=== PATIENT | male | born 1955 | race Caucasian/White ===

== ENCOUNTER 2024-06-26 14:55 | Inpatient (IN) | payer MEDICARE ==
--- NOTE | 2024-06-26 16:05 | ED ---
General Adult HPI - General Chief complaint: Arrhythmia/Palpitations Stated complaint: Transfer-Afib Time Seen by Provider: 06/26/24 15:50 Source: patient, RN/MD, RN notes reviewed, old records reviewed Mode of arrival: ambulatory Limitations: no limitations - History of Present Illness Initial comments: Patient is a 68-year-old male present to the emergency department with concern for atrial flutter. Patient was transferred from [place]. Patient went for routine evaluation for his doctor and then was found to have elevated heart rate. Patient denies any symptoms. No chest pain or palpitations. No dyspnea or fatigue. No history of similar symptoms previously. Patient had evaluation done there and was referred here. Patient drove on his own. - Related Data Home Medications Medication Instructions Recorded Confirmed Empagliflozin [Jardiance] 10 mg PO DAILY 06/26/24 06/26/24 Saw/Vit E/Sod Marissa/Lyc/Beta/Pyg 1 tab PO DAILY 06/26/24 06/26/24 [Prostate Health Caplet] Sildenafil Citrate [Viagra] 25 mg PO DAILY PRN 06/26/24 06/26/24 Allergies Allergy/AdvReac Type Severity Reaction Status Date / Time No Known Allergies Allergy Verified 06/26/24 16:18 Review of Systems ROS Statement: Those systems with pertinent positive or pertinent negative responses have been documented in the HPI. ROS Other: All systems not noted in ROS Statement are negative. Constitutional: Denies: fever Eyes: Denies: eye pain ENT: Denies: ear pain Respiratory: Denies: cough, dyspnea Cardiovascular: Denies: chest pain, palpitations Musculoskeletal: Denies: back pain Past Medical History Past Medical History: Diabetes Mellitus Past Surgical History: No Surgical Hx Reported Past Psychological History: No Psychological Hx Reported Smoking Status: Never smoker Past Alcohol Use History: None Reported Past Drug Use History: None Reported General Exam Limitations: no limitations General appearance: alert, in no apparent distress Head exam: Present: normocephalic Eye exam: Present: normal appearance Neck exam: Present: normal inspection Respiratory exam: Present: normal lung sounds bilaterally Cardiovascular Exam: Present: tachycardia GI/Abdominal exam: Present: soft. Absent: tenderness Extremities exam: Present: normal inspection. Absent: pedal edema, calf tenderness Neurological exam: Present: alert Psychiatric exam: Present: normal affect, normal mood Skin exam: Present: normal color Course Vital Signs 1006/26/24 06/26/24 15:17 15:20 16:20 Temperature 98.3 F Pulse Rate 139 H 141 H 140 H Respiratory 18 18 Rate Blood Pressure 119/83 98/67 109/85 O2 Sat by Pulse 94 L 97 96 Oximetry EKG Findings - EKG Results: EKG: interpreted by LALITAD (Atrial flutter with a rate of 140. Nonspecific intraventricular duction delay. Inferior T wave inversion.), normal axis Medical Decision Making - Medical Decision Making Was pt. sent in by a medical professional or institution (, PA, HOOK AND EYE ATTACHER, urgent care, hospital, or prison...) When possible be specific @ -Patient sent from [place] Did you speak to anyone other than the patient for history (EMS, parent, family, police, friend...)? What history was obtained from this source @ - is present and provides additional history regarding his diabetes Did you review nursing and triage notes (agree or disagree)? Why? @ -I reviewed and agree with nursing and triage notes Were old charts reviewed (outside hosp., previous admission, EMS record, old EKG, old radiological studies, urgent care reports/EKG's, prison records)? Report findings @ -Chart reviewed from [facility] Differential Diagnosis (chest pain, altered mental status, abdominal pain women, abdominal pain men, vaginal bleeding, weakness, fever, dyspnea, syncope, headache, dizziness, GI bleed, back pain, seizure, CVA, palpatations, mental health, musculoskeletal)? @ -Differential Palpitations Ventricular arrhythmias, atrial arrhythmias, myocardial infarction, anemia, thyrotoxicosis, electrolyte imbalance, hypokalemia, pulmonary embolism, pulmonary disease, drugs, alcohol, anxiety, stress.... This is not meant to be an all-inclusive list. EKG interpreted by me (3pts min.). @ -As above X-rays interpreted by me (1pt min.). @ -None done CT interpreted by me (1pt min.). @ -None done U/S interpreted by me (1pt. min.). @ -None done What testing was considered but not performed or refused? (CT, X-rays, U/S, labs )? Why? @ -None What meds were considered but not given or refused? Why? @ -None Did you discuss the management of the patient with other professionals (professionals i.e. , PA, HOOK AND EYE ATTACHER, lab, RT, psych nurse, long term care social worker, hook tender, teacher, occupational medicine officer, mental health case manager)? Give summary @ -[facility] practitioner Abigail Salter who will admit covering Dr. Feng Was smoking cessation discussed for >3mins.? @ -No Was critical care preformed (if so, how long)? @ -31 minutes critical care time Were there social determinants of health that impacted care today? How? (Homelessness, low income, unemployed, alcoholism, drug addiction, transportation, low edu. Level, literacy, decrease access to med. care, half-way, rehab)? @ -No Was there de-escalation of care discussed even if they declined (Discuss DNR or withdrawal of care, Hospice)? DNR status @ -No What co-morbidities impacted this encounter? (DM, HTN, Smoking, COPD, CAD, Cancer, CVA, ARF, Chemo, Hep., AIDS, mental health diagnosis, sleep apnea, m orbid obesity)? @ -History of diabetes Was patient admitted / discharged? Hospital course, mention meds given and route, prescriptions, significant lab abnormalities, going to OR and other pertinent info. @ -Patient presents with new onset atrial flutter. Patient will be admitted with Cardizem and heparin and cardiology consult. Admission orders written. Undiagnosed new problem with uncertain prognosis? @ -No Drug Therapy requiring intensive monitoring for toxicity (Heparin, Nitro, Insulin, Cardizem)? @ -Heparin and Cardizem Were any procedures done? @ -No Diagnosis/symptom? @ -A-flutter with RVR Acute, or Chronic, or Acute on Chronic? @ -Acute Uncomplicated (without systemic symptoms) or Complicated (systemic symptoms)? @ -Default Side effects of treatment? @ -No Exacerbation, Progression, or Severe Exacerbation? @ -No Poses a threat to life or bodily function? How? (Chest pain, [place], [place], pneumonia, PE, COPD, DKA, ARF, appy, cholecystitis, CVA, Diverticulitis, Homicidal, Anton icidal, threat to staff... and all critical care pts) @ -Threat to cardiac function Critical Care Time Critical Care Time: Yes Disposition Clinical Impression: Atrial flutter, Tachycardia Disposition: ADMITTED IP TO THIS HOSP Is patient prescribed a controlled substance at d/c from ED?: No Time of Disposition: 17:19
[2024-06-26] MEDS ORDERED: NALOXONE 0.4 MG/ML 1 ML VIAL IV PRN (16:07)
[2024-06-26] MEDS: DILTIAZEM 125 MG in SODIUM CHLORIDE 0.9% 100 ML IV SCH (16:49)
[2024-06-26] MEDS: HEPARIN SODIUM 1,000 UN/ML (10ML VL) IV ONE (16:51)
[2024-06-26] MEDS: HEPARIN SOD,PORK IN 0.45% NACL 25,000 UNIT in 0.45% NACL 1 250ML.BAG IV SCH (16:53)
[2024-06-26] MEDS: SODIUM CHLORIDE 0.9% 1,000 ML IV SCH (19:54)
[2024-06-26] MEDS: FAMOTIDINE 20 MG TAB PO SCH (20:17)
[2024-06-26 20:18] LABS: Glucose,Whole Blood 219 mg/dL (70-110)
[2024-06-26] MEDS: HEPARIN SODIUM 1,000 UN/ML (10ML VL) IV PRN (22:23)
[2024-06-27 05:48] LABS: Glucose,Whole Blood 245 mg/dL (70-110)
[2024-06-27 06:59] LABS: Basophils % (A) 1 %; Eosinophils # (A) 0.2 k/uL (0-0.7); Eosinophils % (A) 3 %; HCT 44.7 % (39.0-53.0); HGB 14.4 gm/dL (13.0-17.5); Lymphocytes # (A) 1.6 k/uL (1.0-4.8); Lymphocytes % (A) 22 %; MCH 29.2 pg (25.0-35.0); MCHC 32.3 g/dL (31.0-37.0); MCV 90.5 fL (80.0-100.0); Mean Platelet Volume 7.6; Monocytes # (A) 0.5 k/uL (0-1.0); Monocytes % (A) 7 %; Neutrophils # (A) 4.7 k/uL (1.3-7.7); Neutrophils % (A) 65 %; Platelet Count 311 k/uL (150-450); RBC 4.93 m/uL (4.30-5.90); RDW 13.2 % (11.5-15.5); WBC 7.1 k/uL (3.8-10.6)
[2024-06-27 07:06] LABS: INR 1.1 (<1.2); Prothrombin Time 11.8 sec (10.0-12.5)
[2024-06-27] MEDS: DAPAGLIFLOZIN PROPANEDIOL 5 MG TABLET PO SCH (08:38)
[2024-06-27] MEDS ORDERED: [UNRECOGNIZED DRUG - OTHER] PO SCH (09:00)
[2024-06-27] MEDS ORDERED: PYG PO SCH (09:00)
[2024-06-27] MEDS ORDERED: LYC PO SCH (09:00)
[2024-06-27] MEDS ORDERED: VIT E PO SCH (09:00)
[2024-06-27] MEDS ORDERED: SAW PO SCH (09:00)
[2024-06-27] MEDS ORDERED: SOD SEL PO SCH (09:00)
[2024-06-27] MEDS ORDERED: BETA PO SCH (09:00)
--- NOTE | 2024-06-27 10:18 | P.HPIM ---
History of Present Illness History of present illness; 68-year-old male with a past medical history of diabetes presents from [facility] after found to be in atrial flutter. Reports he was at his PCP yesterday where he was noted to have a high heart rate and was sent to [facility] for further evaluation. At [facility] he received an EKG which showed atrial flutter with RVR which prompted them to transfer him to [facility]. Patient denies headache, chest pain, shortness of breath, palpitations, cough, dyspnea, orthopnea, abdominal pain, nausea and vomiting, constipation, and diarrhea. Patient also denies lower extremity swelling. Reports he has not had any symptoms since initially finding out he was in atrial flutter. Initial lab work from the ER was significant for WBC 7.1, hemoglobin 14.4, MCV 90.5, PT 11.8, INR 1.1, APTT 45.4, POC glucose 245, troponins less than 0.012. EKG done in the ER showed heart rate of 140 bpm, atrial flutter/tachycardia with RVR While in the ED patient was started on Cardizem drip 5 mg/h, heparin drip, and NS 75 cc/h. Patient admitted to internal medicine service PHYSICAL EXAMINATION: GENERAL: The patient is alert and oriented x3, not in any acute distress. Well developed, well nourished. HEENT: Pupils are round and equally reacting to light. EOMI. No scleral icterus. No conjunctival pallor. Normocephalic, atraumatic. No pharyngeal erythema. No thyromegaly. CARDIOVASCULAR: S1 and S2 present. No murmurs, rubs, or gallops. PULMONARY: Chest is clear to auscultation b/l, no wheezing or crackles. ABDOMEN: Soft, nontender, nondistended, normoactive bowel sounds. No palpable organomegaly. MUSCULOSKELETAL: No joint swelling or deformity. EXTREMITIES: No cyanosis, clubbing, or pedal edema. NEUROLOGICAL: Gross neurological examination did not reveal any focal deficits. SKIN: No rashes. Assessment:68-year-old male with a past medical history of hypertension and di abetes presents from [facility] after found to be in atrial flutter. Patient is being treated for atrial flutter and management of diabetes. Plan: #Atrial flutter with RVR: Cardiology on consult will follow further recommendations On heparin drip and Cardizem 10 IV drip follow-up echo results Currently on telemetry Continue to monitor #Diabetes mellitus: Continue home Farxiga Continue sliding scale Start metformin XL 500 mg once a day on discharge Continue to monitor Last A1c 10 F: NS 75 cc/h E: None N: Heart healthy A: Normally ambulates at home unassisted DVT ppx: On heparin drip GI ppx: Famotidine Dispo: Pending clinical course Yovana Gilbert MD PGY-1 FM Attestation I have seen and examined this patient with my resident , discussed the same with the resident/PAWEL, and agree with the dictator's assessment and plan as written GENERAL: The patient is alert and oriented x3, not in any acute distress. Well developed, well nourished. HEENT: Pupils are round and equally reacting to light. EOMI. No scleral icterus. No conjunctival pallor. Normocephalic, atraumatic. No pharyngeal erythema. No thyromegaly. CARDIOVASCULAR: S1 and S2 present. No murmurs, rubs, or gallops. PULMONARY: Chest is clear to auscultation, no wheezing or crackles. ABDOMEN: Soft, nontender, nondistended, normoactive bowel sounds. No palpable or ganomegaly. MUSCULOSKELETAL: No joint swelling or deformity. EXTREMITIES: No cyanosis, clubbing, or pedal edema. NEUROLOGICAL: Gross neurological examination did not reveal any focal deficits. SKIN: No rashes. Dr. Ayo mobley Dictation was produced using CAP[employer]URE dictation software. please excuse any grammatical, word or spelling errors. Past Medical History Past Medical History: Diabetes Mellitus History of Any Multi-Drug Resistant Organisms: None Reported Past Surgical History: No Surgical Hx Reported Past Anesthesia/Blood Transfusion Reactions: No Reported Reaction Past Psychological History: No Psychological Hx Reported Smoking Status: Never smoker Past Alcohol Use History: None Reported Past Drug Use History: None Reported Medications and Allergies Home Medications Medication Instructions Recorded Confirmed Type Empagliflozin [Jardiance] 10 mg PO DAILY 06/26/24 06/26/24 History Saw/Vit E/Sod Marissa/Lyc/Beta/Pyg 1 tab PO DAILY 06/26/24 06/26/24 History [Prostate Health Caplet] Sildenafil Citrate [Viagra] 25 mg PO DAILY PRN 06/26/24 06/26/24 History Allergies Allergy/AdvReac Type Severity Reaction Status Date / Time No Known Allergies Allergy Verified 06/26/24 16:18 Physical Exam Vitals: Vital Signs Temp Pulse Pulse Resp BP BP Pulse Ox 06/27/24 04:25 67 18 128/83 97 06/26/24 23:05 111 H 18 126/75 96 06/26/24 20:10 97.7 F 110 H 18 103/71 96 06/26/24 19:45 112 H 20 98 06/26/24 19:33 120 H 18 92/70 98 06/26/24 18:00 138 H 141 H 18 107/78 98 06/26/24 17:00 139 H 18 98 06/26/24 16:20 140 H 18 109/85 96 06/26/24 15:20 141 H 98/67 97 06/26/24 15:17 98.3 F 139 H 18 119/83 94 L Intake and Output 06/26/24 06/27/24 06/27/24 22:59 06:59 14:59 Intake Total 179.355 112.000 Balance 179.355 112.000 Intake: Intake, IV Titration 59.355 112.000 Amount Diltiazem 125 mg In 4.333 112.000 Sodium Chloride 0.9% 100 ml @ 5 MG/HR 5 mls/hr IV .Q24H [facility] Rx#:[id number] Heparin Sod,Pork in 0.45% 55.022 NaCl 25,000 unit In 0.45 % NaCl 1 250ml.bag @ 9.19 UNITS/KG/HR 10.004 mls/ hr IV .Q24H [facility] Rx#: [id number] Oral 120 Other: Voiding Method Toilet Toilet # Voids 1 Weight 108.862 kg 107.2 kg Results CBC & Chem 7: 06/28/24 06:14 06/28/24 00:45 Labs: Abnormal Lab Results - Last 24 Hours (Table) 06/26/24 06/26/24 06/27/24 Range/Units 20:16 21:51 04:14 APTT 33.1 H 45.4 H (22.0-30.0) sec POC Glucose (mg/dL) 219 H (70-110) mg/dL 06/27/24 Range/Units 05:46 APTT (22.0-30.0) sec POC Glucose (mg/dL) 245 H (70-110) mg/dL Thrombosis Risk Factor Assmnt - Choose All That Apply Any of the Below Risk Factors Present?: No Other Risk Factors: Yes Each Risk Factor Represents 2 Points: Age 61-74 years Thrombosis Risk Factor Assessment Total Risk Factor Score: 2 Thrombosis Risk Factor Assessment Level: Low Risk
[2024-06-27 11:40] LABS: Glucose,Whole Blood 234 mg/dL (70-110)
[2024-06-27] MEDS: INSULIN ASPART (NovoLOG) 100 UNIT/ML VIAL SQ SCH (12:08)
[2024-06-27 16:40] LABS: Glucose,Whole Blood 185 mg/dL (70-110)
[2024-06-27 20:00] LABS: Glucose,Whole Blood 222 mg/dL (70-110)
--- NOTE | 2024-06-28 00:23 | P.CRDCN ---
History of Present Illness Consult date: 06/27/24 History of present illness: HISTORY OF PRESENTING ILLNESS 68-year-old male patient with past medical history of type 2 diabetes presented from [facility]. Patient reports that he has not been having any symptoms and was recently being evaluated by his primary care physician on an annual visit. On his visit he was noticed to have fast heartbeat for which she was sent to the [facility]. At [facility] he was found to have atrial fibrillation with RVR for which she was transferred to [facility] in [place]. Patient explicitly denies having any active chest pain chest pressure or shortness of breath. He denies any lightheadedness dizziness. He denies any passing out spells. His admission ECG in our hospital shows A-fib RVR. He was started on Cardizem drip and heparin drip. REVIEW OF SYSTEMS 14 point review of system is negative except what is mentioned above in HPI. PHYSICAL EXAMINATION Vital signs reviewed. Head: Normocephalic. Eyes: Sclerae nonicteric. Neck: Brisk carotid upstroke, no jugular venous distention. Lungs: Clear to auscultation. Heart: Regular rate and rhythm, S1-S2, no S3, no murmur or rub. Abdomen: Soft nontender, positive bowel sounds. Extremities: No edema, intact distal pulses. Neuro: Alert, oritented, no focal deficits. Detailed neuro exam was not performed. ASSESSMENT A-fib RVR, asymptomatic, Newly diagnosed Type 2 diabetes PLAN Obtain echocardiogram Obtain TSH, NT proBNP, lipid panel, HbA1c levels, Mg levels Continue Cardizem drip Start metoprolol 25 mg twice daily Discontinue IV heparin drip, start Eliquis 5 mg twice daily Goal is to obtain rate control. If failing to rate control, or if patient becomes symptomatic with congestive heart failure or chest pain, consider cardioversion. Ignacio Phillip MD, FACC, RPVI Thank you for allowing [facility] to participate in this patient's care. Feel free to reach out in case of any followup questions. Past Medical History Past Medical History: Diabetes Mellitus History of Any Multi-Drug Resistant Organisms: None Reported Past Surgical History: No Surgical Hx Reported Past Anesthesia/Blood Transfusion Reactions: No Reported Reaction Past Psychological History: No Psychological Hx Reported Smoking Status: Never smoker Past Alcohol Use History: None Reported Past Drug Use History: None Reported Medications and Allergies Home Medications Medication Instructions Recorded Confirmed Type Empagliflozin [Jardiance] 10 mg PO DAILY 06/26/24 06/26/24 History Saw/Vit E/Sod Marissa/Lyc/Beta/Pyg 1 tab PO DAILY 06/26/24 06/26/24 History [Prostate Health Caplet] Sildenafil Citrate [Viagra] 25 mg PO DAILY PRN 06/26/24 06/26/24 History Allergies Allergy/AdvReac Type Severity Reaction Status Date / Time No Known Allergies Allergy Verified 06/26/24 16:18 Physical Exam Vitals: Vital Signs Temp Pulse Resp BP Pulse Ox 06/27/24 23:41 64 18 135/91 96 06/27/24 20:45 98.1 F 67 18 120/68 96 06/27/24 16:00 62 18 123/75 95 06/27/24 14:00 91 18 06/27/24 12:00 91 18 122/65 97 06/27/24 08:20 98.1 F 116 H 18 125/69 97 06/27/24 04:25 67 18 128/83 97 Intake and Output 06/27/24 06/27/24 06/28/24 14:59 22:59 06:59 Intake Total 914.978 632.667 Balance 914.978 632.667 Intake: Intake, IV Titration 194.978 92.667 Amount Diltiazem 125 mg In 92.667 Sodium Chloride 0.9% 100 ml @ 5 MG/HR 5 mls/hr IV .Q24H [facility] Rx#:[id number] Heparin Sod,Pork in 0.45% 194.978 NaCl 25,000 unit In 0.45 % NaCl 1 250ml.bag @ 9.19 UNITS/KG/HR 10.004 mls/ hr IV .Q24H [facility] Rx#: [id number] Oral 720 540 Other: Voiding Method Toilet Toilet # Voids 1 Results 06/27/24 06:39 Coagulation 06/27/24 06/27/24 Range/Units 04:14 06:39 PT 11.8 (10.0-12.5) sec APTT 45.4 H (22.0-30.0) sec CBC 06/27/24 Range/Units 06:39 WBC 7.1 (3.8-10.6) k/uL RBC 4.93 (4.30-5.90) m/uL Hgb 14.4 (13.0-17.5) gm/dL Hct 44.7 (39.0-53.0) % Plt Count 311 (150-450) k/uL Current Medications Generic Name Dose Route Start Last Admin Trade Name Freq PRN Reason Stop Dose Admin Apixaban 5 mg 06/28/24 00:30 Apixaban 5 Mg Tab PO BID [facility] Protocol Dapagliflozin 5 mg 06/27/24 09:00 06/27/24 08:38 Dapagliflozin Propanediol 5 Mg Tablet PO 5 mg DAILY [facility] Administration Famotidine 20 mg 06/26/24 21:00 06/27/24 20:53 Famotidine 20 Mg Tab PO 20 mg BID [facility] Administration Diltiazem HCl 125 mg/ Sodium 125 mls @ 5 mls/hr 06/26/24 16:15 06/27/24 16:08 Chloride IV 10 mg/hr .Q24H [facility] 10 mls/hr Administration 5 MG/HR Sodium Chloride 1,000 mls @ 75 mls/hr 06/26/24 20:00 06/27/24 11:00 Saline 0.9% IV Not Given .[id number] [facility] Insulin Aspart 0 unit 06/27/24 12:30 06/27/24 20:53 Insulin Aspart (Novolog) 100 Unit/Ml Vial SQ 4 unit ACHS [facility] Administration Protocol Naloxone HCl 0.2 mg 06/26/24 16:07 Naloxone 0.4 Mg/Ml 1 Ml Vial IV Q2M PRN Opioid Reversal Intake and Output 06/27/24 06/27/24 06/28/24 14:59 22:59 06:59 Intake Total 914.978 632.667 Balance 914.978 632.667 Intake: Intake, IV Titration 194.978 92.667 Amount Diltiazem 125 mg In 92.667 Sodium Chloride 0.9% 100 ml @ 5 MG/HR 5 mls/hr IV .Q24H [facility] Rx#:[id number] Heparin Sod,Pork in 0.45% 194.978 NaCl 25,000 unit In 0.45 % NaCl 1 250ml.bag @ 9.19 UNITS/KG/HR 10.004 mls/ hr IV .Q24H [facility] Rx#: [id number] Oral 720 540 Other: Voiding Method Toilet Toilet # Voids 1 06/27/24 06:39
[2024-06-28] MEDS: APIXABAN 5 MG TAB PO SCH (00:32)
[2024-06-28 01:42] LABS: ALT 24 U/L (4-49); AST 22 U/L (17-59); African American GFR (CKD) 87 (>60 ml/min/1.73 sqM); Albumin 3.9 g/dL (3.5-5.0); Alkaline Phosphatase 89 U/L (38-126); Anion Gap 6 mmol/L; Blood Urea Nitrogen 22 mg/dL (9-20); Calcium 9.7 mg/dL (8.4-10.2); Carbon Dioxide 24 mmol/L (22-30); Chloride 106 mmol/L (98-107); Glucose 203 mg/dL (74-99); Non-African American GFR(CKD) 75 (>60 ml/min/1.73 sqM); Potassium 4.2 mmol/L (3.5-5.1); Sodium 136 mmol/L (137-145); Total Bilirubin 0.6 mg/dL (0.2-1.3); Total Protein 6.8 g/dL (6.3-8.2)
[2024-06-28 01:51] LABS: NT-Pro-B-Type Natriuretic Pept 145 pg/mL
[2024-06-28 06:00] LABS: Glucose,Whole Blood 199 mg/dL (70-110)
[2024-06-28 06:46] LABS: Basophils # (A) 0.1 k/uL (0-0.2); Basophils % (A) 1 %; Eosinophils # (A) 0.1 k/uL (0-0.7); Eosinophils % (A) 2 %; HCT 45.2 % (39.0-53.0); HGB 14.5 gm/dL (13.0-17.5); Lymphocytes # (A) 1.5 k/uL (1.0-4.8); Lymphocytes % (A) 19 %; MCH 29.1 pg (25.0-35.0); MCHC 32.1 g/dL (31.0-37.0); MCV 90.4 fL (80.0-100.0); Mean Platelet Volume 7.2; Monocytes # (A) 0.7 k/uL (0-1.0); Monocytes % (A) 8 %; Neutrophils # (A) 5.6 k/uL (1.3-7.7); Neutrophils % (A) 69 %; Platelet Count 306 k/uL (150-450); RDW 13.2 % (11.5-15.5); WBC 8.2 k/uL (3.8-10.6)
[2024-06-28 07:04] LABS: Prothrombin Time 10.9 sec (10.0-12.5)
--- NOTE | 2024-06-28 07:10 | CA ---
Transthoracic Echo Report Name: Brandon Piper Age: 68 Gender: M : 1955 Exam Date: 06/27/2024 14:08 Exam Location: [facility] Ht (in): 70 Wt (lb): 236 Ordering Physician: Philipp Quach MD Attending/Referring Phys: Coal Drier Operator Monserrat Mcmillan RDCS Procedure CPT: Indications: atrial flutter Cardiac Hx: Technical Quality: Fair Contrast 1: Total Dose (mL): Contrast 2: Total Dose (mL): MEASUREMENTS (Male / Female) Normal Values 2D ECHO LV Diastolic Diameter PLAX 4.4 cm 4.2 - 5.9 / 3.9 - 5.3 cm LV Systolic Diameter PLAX 3.3 cm IVS Diastolic Thickness 1.4 cm 0.6 - 1.0 / 0.6 - 0.9 cm LVPW Diastolic Thickness 1.3 cm 0.6 - 1.0 / 0.6 - 0.9 cm LV Relative Wall Thickness 0.6 RV Internal Dim ED PLAX 3.0 cm LA Volume 83.2 cm??? 18 - 58 / 22 - 52 cm??? LA Volume Index 35.6 cm???/m??? 16 - 28 cm???/m??? M-MODE Aortic Root Diameter MM 3.1 cm LA Systolic Diameter MM 4.3 cm LA Ao Ratio MM 1.4 AV Cusp Separation MM 1.9 cm DOPPLER AV Peak Velocity 136.8 cm/s AV Peak Gradient 7.5 mmHg AV Mean Velocity 93.4 cm/s AV Mean Gradient 4.1 mmHg AV Velocity Time Integral 22.0 cm LVOT Peak Velocity 97.2 cm/s LVOT Peak Gradient 3.8 mmHg LVOT Velocity Time Integral 18.7 cm MV Area PHT 2.8 cm??? Mitral E Point Velocity 106.2 cm/s Mitral A Point Velocity 1.4 cm/s Mitral E to A Ratio 78.2 MV Deceleration Time 273.7 ms MV E' Velocity 12.4 cm/s Mitral E to MV E' Ratio 8.6 TR Peak Velocity 262.4 cm/s TR Peak Gradient 27.5 mmHg Right Ventricular Systolic Press 32.5 mmHg FINDINGS Left Ventricle Mildly increased left ventricular wall thickness. Left ventricular cavity size normal. Normal left ventricular systolic function with no obvious regional wall motion abnormalities. Left ventricular ejection fraction is estimated at 50-55 %. Right Ventricle Normal right ventricular size and function. Right Atrium Normal right atrial size. Left Atrium Moderately increased left atrial volume. Mildly increased left atrial area. Mitral Valve Structurally normal mitral valve. Mitral valve thickened. Dzdi-so-ccjphjot mitral regurgitation. Aortic Valve Trileaflet aortic valve. No aortic stenosis. No aortic regurgitation. Aortic valve sclerosis. Tricuspid Valve Structurally normal tricuspid valve. Mild tricuspid regurgitation. Pulmonic Valve Structurally normal pulmonic valve. Pericardium No pericardial effusion. Aorta Normal size aortic root and proximal ascending aorta. CONCLUSIONS 1. Left Ventricular systolic function borderline normal 2. Mild to moderate mitral regurgitation 3. Mild tricuspid regurgitation with no evidence of pulmonary hypertension Previewed by: Dr. Taty Grant MD (Electronically Signed) Final Date: 28 June 2024 07:09
[2024-06-28 08:31] LABS: T4, Free (Free Thyroxine) 1.71 ng/dL (0.78-2.19)
[2024-06-28 09:13] LABS: Chol/HDL Ratio 4.79 Ratio; LDL Cholesterol,Calculated 123.4 mg/dL (0.0-131.0)
[2024-06-28] MEDS ORDERED: MIDAZOLAM 2 MG/2 ML VIAL IV PRN (10:51)
[2024-06-28] MEDS ORDERED: BENZOCAINE SPRAY 1 CAN TOPICAL PRN (10:51)
[2024-06-28] MEDS ORDERED: fentaNYL (PF) 50 MCG/ML 5 ML AMP IVP PRN (10:51)
[2024-06-28 11:46] LABS: Glucose,Whole Blood 176 mg/dL (70-110)
[2024-06-28] MEDS: DEXTROSE 5% IN WATER 100 ML with AMIODARONE 150 MG IV ONE (12:09)
[2024-06-28] MEDS: METOPROLOL TARTRATE 25 MG TAB PO SCH (12:09)
[2024-06-28] MEDS: AMIODARONE 360 MG in DEXTROSE 5% IN WATER 200 ML IV ONE (12:27)
--- NOTE | 2024-06-28 13:27 | P.PN ---
Subjective Progress Note Date: 06/28/24 Principal diagnosis: HPI: [This patient was admitted with past history of type 2 diabetes from [facility]. He was in atrial flutter with a moderately rapid ventricular r ate. This is a new diagnosis that was discovered on Tuesday evening. He still remains in atrial flutter feels palpitations the rate is in the 1 20-1 30 range. I will request Dr. Phillip to perform a transesophageal echo and electrical cardioversion today. He has type 2 diabetes and obesity but tolerating the rhythm fairly well at this time.]. PHYSICIAL EXAM: [Vitals are stable no JVD S1-S2 heard normally with a tachycardia irregularity lungs reveal decent air entry abdomen is soft lower EXTR reveal diminished pulses Central nervous system is normal]. IMPRESSION: 1. [New onset atrial flutter fibrillation with rapid rate]. 2. [Type 2 diabetes]. 3. []. 4. []. 5. []. RECOMMENDATIONS: [Advised transesophageal echo to look for thrombus and electrical cardioversion will request Dr. Phillip to perform the procedure today discussed with patient and ]. Objective - Vital Signs Vital signs: Vital Signs Temp 97.8 F 06/28/24 08:20 Pulse 106 H 06/28/24 12:30 Resp 18 06/28/24 12:30 BP 117/63 06/28/24 12:30 Pulse Ox 95 06/28/24 12:30 FiO2 Intake & Output 06/27/24 06/28/24 06/28/24 18:59 06:59 18:59 Intake Total 1547.645 98.862 Balance 1547.645 98.862 Weight 106.8 kg Intake: Intake, IV Titration 287.645 98.862 Amount Diltiazem 125 mg In 92.667 Sodium Chloride 0.9% 100 ml @ 5 MG/HR 5 mls/hr IV .Q24H [facility] Rx#:[id number] Heparin Sod,Pork in 0.45% 194.978 98.862 NaCl 25,000 unit In 0.45 % NaCl 1 250ml.bag @ 9.19 UNITS/KG/HR 10.004 mls/ hr IV .Q24H [facility] Rx#: [id number] Oral 1260 Other: Voiding Method Toilet Toilet Toilet # Voids 2 - Labs CBC & Chem 7: 06/28/24 06:14 06/28/24 00:45 Labs: Abnormal Lab Results - Last 24 Hours (Table) 06/27/24 06/27/24 06/28/24 Range/Units 16:32 19:58 00:45 Sodium 136 L (137-145) mmol/L BUN 22 H (9-20) mg/dL Glucose 203 H (74-99) mg/dL POC Glucose (mg/dL) 185 H 222 H (70-110) mg/dL Hemoglobin A1c (<=6.0) % Triglycerides 198.00 H (0.00-149.00) mg/dL Cholesterol 206.00 H (0.00-200.00) mg/dL TSH 12.600 H (0.465-4.680) mIU/L 06/28/24 06/28/24 06/28/24 Range/Units 00:45 05:56 11:45 Sodium (137-145) mmol/L BUN (9-20) mg/dL Glucose (74-99) mg/dL POC Glucose (mg/dL) 199 H 176 H (70-110) mg/dL Hemoglobin A1c 12.2 H (<=6.0) % Triglycerides (0.00-149.00) mg/dL Cholesterol (0.00-200.00) mg/dL TSH (0.465-4.680) mIU/L
[2024-06-28 13:30] VITALS: TEMP 98
[2024-06-28 13:30] LABS: Glucose,Whole Blood 165 mg/dL (70-110)
[2024-06-28] MEDS: IV FLUID CONTINUATION 1,000 ML IV ONE (13:30)
--- NOTE | 2024-06-28 13:36 | P.PN ---
Subjective HPI: 68-year-old male with a past medical history of diabetes presents from [facility] after found to be in atrial flutter. Reports he was at his PCP yesterday where he was noted to have a high heart rate and was sent to [facility] for further evaluation. At [facility] he received an EKG which showed atrial flutter with RVR which prompted them to transfer him to [facility]. Patient denies headache, chest pain, shortness of breath, palpitations, cough, dyspnea, orthopnea, abdominal pain, nausea and vomiting, constipation, and diarrhea. Patient also denies lower extremity swelling. Reports he has not had any symptoms since initially finding out he was in atrial flutter. Initial lab work from the ER was significant for WBC 7.1, hemoglobin 14.4, MCV 90.5, PT 11.8, INR 1.1, APTT 45.4, POC glucose 245, troponins less than 0.012. EKG done in the ER showed heart rate of 140 bpm, atrial flutter/tachycardia with RVR. While in the ED patient was started on Cardizem drip 5 mg/h, heparin drip, and NS 75 cc/h. Subjective: 06/28/2024: Patient seen at bedside. No significant overnight events. Patient reports he still has no symptoms and feels well. Pertinent positives and negatives discussed above, a complete review of systems was preformed and all the other sytems were negative. Vitals Signs Reveiwed. General: non toxic, no distress, appears at stated age, normal weight Derm: no unusual rashes/lesions, warm Head: atraumatic, normocephalic, symmetric Eyes: EOMI, no lid lag, anicteric sclera, pupils equal round reactive to light ENT: Nose and ears atraumatic Neck: No cervical lymphadenopathy, trachea midline, supple Mouth: no lip lesion, mucus membranes moist Cardiovascular: S1S2 reg, no murmur, positive dorsalis pedis pulse bilateral, no edema Lungs: Decreased air entry bilaterally, no rhonchi, no rales, no accessory muscle use Abdominal: soft, nontender to palpation, no guarding Ext: muscle strength 5 out of 5 in all 4 extremities grossly, no gross muscle atrophy, no contractures, Neuro: CN II-XI grossly intact, no gross focal neuro deficits Psych: Alert, oriented, appropriate affect Data Reveiwed Today: Patient Labs: WBC 18.2, hemoglobin 14.5, MCV 90.4, sodium 136, glucose 203, hemoglobin A1c 12.2, triglycerides 198, cholesterol 206, TSH 12.6, free T41.71. Imaging: Echo showed EF 50 to 55%, left ventricular systolic function borderline normal, mild to moderate mitral regurgitation, mild tricuspid regurgitation with no evidence of pulmonary hypertension. Assessment:68-year-old male with a past medical history of hypertension and diabetes presents from [facility] after found to be in atrial flutter. Patient is being treated for atrial flutter and management of di abetes. Plan: #Atrial flutter with RVR: Cardiology on consult will follow further recommendations On heparin drip and discontinued Cardizem drip and switched to amiodarone IV 1 mg/min Continue metoprolol 25 mg p.o. 3 times daily Echo showed EF of 50 to 55%, normal left ventricular systolic function with mild mitral and tricuspid regurg with no evidence of O'Kell hypertension Scheduled for echo transesophageal with cardioversion Currently on telemetry Continue to monitor #Diabetes mellitus: Continue home Farxiga Continue sliding scale Start metformin XL 500 mg once a day on discharge Continue to monitor Last A1c 10, most recent during this admission 12.2 #Hypothyroidism: Found to have TSH of 12.6 during admission Started Synthroid 25 mcg p.o. daily Will need to follow-up with PCP and endocrinology outpatient for repeat TSH screening and adjustment of Synthroid #Hyperlipidemia: During this admission found to have triglycerides 198 and cholesterol 206 Upon discharge start statin with PCP F: NS 75 cc/h E: None N: Heart healthy A: Normally ambulates at home unassisted DVT ppx: On heparin drip GI ppx: Famotidine Dispo: Pending clinical course Yovana Gilbert MD PGY-1 FM Code Status: Full code Anticipated discharge place: To home Anticipated discharge time: Pending clinical course Attestation I have seen and examined this patient with my resident , discussed the same with the resident/PAWEL, and agree with the dictator's assessment and plan as written Dr. Ayo mobley [ ] Objective - Vital Signs Vital signs: Vital Signs Temp 97.8 F 06/28/24 08:20 Pulse 106 H 06/28/24 12:30 Resp 18 06/28/24 12:30 BP 117/63 06/28/24 12:30 Pulse Ox 95 06/28/24 12:30 FiO2 Intake & Output 06/27/24 06/28/24 06/28/24 18:59 06:59 18:59 Intake Total 1547.645 98.862 Balance 1547.645 98.862 Weight 106.8 kg Intake: Intake, IV Titration 287.645 98.862 Amount Diltiazem 125 mg In 92.667 Sodium Chloride 0.9% 100 ml @ 5 MG/HR 5 mls/hr IV .Q24H BERENICE Rx#:[id number] Heparin Sod,Pork in 0.45% 194.978 98.862 NaCl 25,000 unit In 0.45 % NaCl 1 250ml.bag @ 9.19 UNITS/KG/HR 10.004 mls/ hr IV .Q24H BERENICE Rx#: [id number] Oral 1260 Other: Voiding Method Toilet Toilet Toilet # Voids 2 - Labs CBC & Chem 7: 06/28/24 06:14 06/28/24 00:45 Labs: Abnormal Lab Results - Last 24 Hours (Table) 06/27/24 06/27/24 06/28/24 Range/Units 16:32 19:58 00:45 Sodium 136 L (137-145) mmol/L BUN 22 H (9-20) mg/dL Glucose 203 H (74-99) mg/dL POC Glucose (mg/dL) 185 H 222 H (70-110) mg/dL Hemoglobin A1c (<=6.0) % Triglycerides 198.00 H (0.00-149.00) mg/dL Cholesterol 206.00 H (0.00-200.00) mg/dL TSH 12.600 H (0.465-4.680) mIU/L 06/28/24 06/28/24 06/28/24 Range/Units 00:45 05:56 11:45 Sodium (137-145) mmol/L BUN (9-20) mg/dL Glucose (74-99) mg/dL POC Glucose (mg/dL) 199 H 176 H (70-110) mg/dL Hemoglobin A1c 12.2 H (<=6.0) % Triglycerides (0.00-149.00) mg/dL Cholesterol (0.00-200.00) mg/dL TSH (0.465-4.680) mIU/L
[2024-06-28] MEDS ORDERED: PROPOFOL 10 MG/ML 20 ML VIAL IV ONE (13:40)
[2024-06-28] MEDS: BENZOCAINE SPRAY 1 EACH MM ONE ×2 (13:46)
--- NOTE | 2024-06-28 14:32 | P.TEE ---
Date of Procedure: 06/28/24 Description of Procedure(s): Procedure performed: 1. Transesophageal Echocardiogram. Color-flow Doppler, pulse-wave Doppler 2. Synchronized Cardioversion. 3. bubble study Indications: Atrial flutter with RVR. Consent: I have discussed the risks, benefits and alternative therapies for the above-mentioned procedure. The patient has indicated understanding and acceptance of the risks of the procedure. Signed consent was obtained and was placed in the paper chart. Moderate conscious sedation: Moderate conscious sedation was administered by anesthesia, see separate report. Procedural Steps: Timeout was performed in usual fashion. Patient's heart rate, blood pressure, oxygen saturation and ECG were monitored. After achieving appropriate moderate conscious sedation, RENEE RENEE probe was advanced without difficulty and without any immediate complications to the esophagus. RENEE study was performed with color flow doppler, pulsed wave doppler and continuous wave doppler. Agitated saline bubbles were injected to assess for any intra-atrial shunt. The probe was then removed. SYNCHRONIZED CARDIOVERSION After making sure that there is no evidence of intracardiac thrombus, pacer pads were placed and secured on patients chest and back. Synchronized cardioversion was perfromed using 120 J. 1 attempt. Sinus rhythm was confirmed with a 12 lead EKG. Patient tolerated the procedure well. Patient was transferred to the post procedure area in stable and satisfactory condition. Complications: none Blood loss: none FINDINGS Left Atrium: Mild left atrial dilatation. No evidence of mass or thrombus seen Left Atrial Appendage: No evidence of thrombus or mass seen in FREDA. Good Doppler velocities. Inter atrial septum: Intact inter-atrial septum. No evidence of atrial septal defect or patent foramen ovale on color doppler. Bubble study was suboptimal. Left Ventricle: Mild to moderately reduced global LV systolic function. Right Atrium: Normal overall RA size Right Ventricle: Normal global RV size and systolic function Aortic Valve: Structurally normal Trileaflet, no significant calcification. No significant stenosis or regurgitation on color doppler assessment. Mitral Valve: Struturally normal. Mild functional mitral regurgitation Pulmonic Valve: No significant stenosis or regurgitation Tricuspid Valve: Mild tricuspid regurgitation Ascending aorta, Aortic root and Aortic arch: Mild intimal thickening. Descending aorta: Mild intimal thickening. No pericardial effusion CONCLUSION: No evidence of thrombus in FREDA or left atrial appendage Good velocities in left atrial appendage Mild left atrial dilatation Mild to moderate global LV systolic dysfunction Mild mitral regurgitation. Followed by synchronized cardioversion, 1 attempt, 120 J, successful With resolution of normal sinus rhythm Impression Atrial flutter, with RVR. Likely typical. [id number] score 3 (age, diabetes, mild cardiomyopathy) Mild tachycardia induced cardiomyopathy Type 2 diabetes Obesity Plan Discontinue amiodarone. Continue Eliquis indefinitely without any interruption. Reduce metoprolol to 25 mg twice daily Stop levothyroxine as TSH is high but normal T4 likely subclinical hypothyroidism Continue Jardiance 10 mg daily Start Lipitor 20 mg daily Recommend outpatient follow-up with Dr. Phillip with outpatient stress test. Outpatient sleep study evaluation. Abstain from alcohol, no smoking, minimal caffeine use. Patient is okay to be discharged from cardiovascular stand Ignacio Phillip MD, RPVI, FACC Thank you for allowing [facility] to participate in this patient's care. Feel free to reach out in case of any followup questions.
--- NOTE | 2024-06-28 14:54 | P.DS ---
Providers Date of admission: 06/26/24 16:08 Attending physician: Lilia Kilpatrick Consults: 06/26/24 16:07 Consult Physician Urgent Consulting Provider: Ignacio Phillip Consult Reason/Comments: flutter w rvr Do you want consulting provider notified?: Yes Primary care physician: Garrick Feng MD Hospital Course: Discharge Diagnosis: Atrial flutter, with RVR Mild tachycardia induced cardiomyopathy Type 2 diabetes Obesity Hypothyroidism versus subclinical hypothyroidism Hospital Course: 68-year-old male with a past medical history of diabetes presents from [facility] after found to be in atrial flutter. Reports he was at his PCP yesterday where he was noted to have a high heart rate and was sent to [facility] for further evaluation. At [facility] he received an EKG which showed atrial flutter with RVR which prompted them to transfer him to [facility]. Patient denies headache, chest pain, shortness of breath, palpitations, cough, dyspnea, orthopnea, abdominal pain, nausea and vomiting, constipation, and diarrhea. Patient also denies lower extremity swelling. Reports he has not had any symptoms since initially finding out he was in atrial flutter. Initial lab work from the ER was significant for WBC 7.1, hemoglobin 14.4, MCV 90.5, PT 11.8, INR 1.1, APTT 45.4, POC glucose 245, troponins less than 0.012. EKG done in the ER showed heart rate of 140 bpm, atrial flutter/tachycardia with RVR. While in the ED patient was started on Cardizem drip 5 mg/h, heparin drip, and NS 75 cc/h. While admitted patient was maintained on Cardizem drip 10 mg/h which was then changed to amiodarone 1 mg/min. Patient also received an echo which showed EF 50 to 55%, left ventricular systolic function borderline normal, mild to moderate mitral regurgitation, mild tricuspid regurgitation with no evidence of pulmonary hypertension. Patient also received further lab work including A1c 12.2, lipid panel showing triglycerides 198 and cholesterol 206, TSH 12.6, and free T4 1.71. Patient also received a RENEE with synchronized cardioversion which resulted and showed no evidence of thrombus in FREDA or left atrial appendage, Good velocities in left atrial appendage, Mild left atrial dilatation, Mild to moderate global LV systolic dysfunction, and mild mitral regurgitation. Followed by synchronized cardioversion, 1 attempt, 120 J, successful with resolution of normal sinus rhythm. Patient found to have elevated TSH while admitted, considered starting on Synthroid 25 but per cardiology likely a subclinical hypothyroidism due to normal T4. On discharge patient is prescribed for new medications including atorvastatin 20 mg p.o. daily after having elevated cholesterol and triglycerides, metoprolol 25 mg p.o. twice daily, Eliquis 5 mg p.o. twice daily, and metformin ER 500 mg p.o. daily after only being on Jardiance and having an A1c of 12.2 while admitted. Patient is medically and hemodynamically stable for discharge to home. As stated above patient had successful conversion to normal sinus rhythm after 1 cardioversion attempt at 120 J. 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 Pt seen and examined at bedside: Standing and excited to leave. Patient reports he still has not had any symptoms since admission. Vital signs reveiwed and stable: General: non toxic, no distress, appears at stated age, normal weight Derm: no unusual rashes/lesions, warm Head: atraumatic, normocephalic, symmetric Eyes: EOMI, no lid lag, anicteric sclera, pupils equal round reactive to light ENT: Nose and ears atraumatic Neck: No cervical lymphadenopathy, trachea midline, supple Mouth: no lip lesion, mucus membranes moist Cardiovascular: S1S2 reg, no murmur, positive dorsalis pedis pulse bilateral, no edema Lungs: Decreased air entry bilaterally, no rhonchi, no rales, no accessory muscle use Abdominal: soft, nontender to palpation, no guarding Ext: muscle strength 5 out of 5 in all 4 extremities grossly, no gross muscle atrophy, no contractures, Neuro: CN II-XI grossly intact, no gross focal neuro deficits Psych: Alert, oriented, appropriate affect A total of her than 30 minutes were spent preparing this complex discarge summary. Patient was discharged on 06/28/2024 at 14: 43. Attestation I have seen and examined this patient with my resident , discussed the same with the resident/PAWEL, and agree with the dictator's assessment and plan as written Dr. Ayo velazquez Plan - Discharge Summary Discharge Rx Participant: No New Discharge Prescriptions: New Atorvastatin [Lipitor] 20 mg PO DAILY #60 tab Metoprolol Tartrate [Lopressor] 25 mg PO BID #90 tab Apixaban [Eliquis] 5 mg PO BID #90 tab metFORMIN HCL ER [Glucophage XR] 500 mg PO DAILY #90 tab Continue Sildenafil Citrate [Viagra] 25 mg PO DAILY PRN PRN Reason: sexual intercourse Empagliflozin [Jardiance] 10 mg PO DAILY Saw/Vit E/Sod Marissa/Lyc/Beta/Pyg [Prostate Health Caplet] 1 tab PO DAILY Discharge Medication List Empagliflozin [Jardiance] 10 mg PO DAILY 06/26/24 [History] Saw/Vit E/Sod Marissa/Lyc/Beta/Pyg [Prostate Health Caplet] 1 tab PO DAILY 06/26/24 [History] Sildenafil Citrate [Viagra] 25 mg PO DAILY PRN 06/26/24 [History] Apixaban [Eliquis] 5 mg PO BID #90 tab 06/28/24 [Rx] Atorvastatin [Lipitor] 20 mg PO DAILY #60 tab 06/28/24 [Rx] Metoprolol Tartrate [Lopressor] 25 mg PO BID #90 tab 06/28/24 [Rx] metFORMIN HCL ER [Glucophage XR] 500 mg PO DAILY #90 tab 06/28/24 [Rx] Follow up Appointment(s)/Referral(s): Ignacio Phillip MD [Medical Doctor] - 1 Week Garrick Feng MD [Primary Care Provider] - 1-2 days Sneha Velazquez [STAFF PHYSICIAN] - 1 Week Patient Instructions/Handouts: Atrial Flutter (DC), Cardioversion (DC), Transesophageal Echocardiogram (DC) Discharge Disposition: HOME SELF-CARE
[2024-06-28 15:43] VITALS: BP 122/82; PULSE 72; RESP 17
[2024-06-28] MEDS ORDERED: AMIODARONE 450 MG in DEXTROSE 5% IN WATER 250 ML IV SCH (17:00)
[2024-06-28] MEDS ORDERED: METOPROLOL TARTRATE 25 MG TAB PO SCH (21:00)
[2024-06-29] MEDS ORDERED: LEVOTHYROXINE 25 MCG TAB PO SCH (06:30)
[2024-06-29] MEDS ORDERED: DAPAGLIFLOZIN PROPANEDIOL 10 MG TABLET PO SCH (09:00)
[2024-06-29] MEDS ORDERED: LOSARTAN 25 MG TAB PO SCH (09:00)
[2024-06-29] MEDS ORDERED: ATORVASTATIN 20 MG TAB PO SCH (09:00)
== END 2024-06-28 15:31 | disposition home or self-care (01) | DRG 310 ==
LOC: EC 14:55 → 3SCARD 16:08
PROVIDERS: ADMIT Hospitalist; ATTEND Hospitalist
PROC: 5A2204Z Restoration of Cardiac Rhythm, Single (ICD-10-PCS; 2024-06-28)
PROC: B24BZZ4 Ultrasonography of Heart with Aorta, Transesophageal (ICD-10-PCS; principal; 2024-06-28 07:30)
DX: I48.3 Typical atrial flutter (principal); I48.91 Unspecified atrial fibrillation; E66.9 Obesity, unspecified; Z68.33 Body mass index [BMI] 33.0-33.9, adult; E11.9 Type 2 diabetes mellitus without complications; I42.8 Other cardiomyopathies; I10 Essential (primary) hypertension; E03.8 Other specified hypothyroidism; E78.00 Pure hypercholesterolemia, unspecified; Z79.01 Long term (current) use of anticoagulants; Z79.899 Other long term (current) drug therapy; Z79.84 Long term (current) use of oral hypoglycemic drugs
CPT/HCPCS: 80053; 80061; 83036; 83880; 84439; 84443; 84484; 85025; 85610; 85730; 92960; 93005; 93306; 93312; 93320; 93325; 96365; 96366; 96368; 99291

== ENCOUNTER → 2024-08-01 | Outpatient (CLI) | payer MEDICARE ==
[2024-08-01 10:51] LABS: ALT 26 U/L (10-49); AST 23 U/L (14-35); Albumin 4.3 g/dL (3.8-4.9); Albumin/Globulin Ratio 1.39 Ratio (1.60-3.17); Alkaline Phosphatase 91 U/L (41-126); Blood Urea Nitrogen 21.9 mg/dL (9.0-27.0); Calcium 9.8 mg/dL (8.7-10.3); Carbon Dioxide 24.6 mmol/L (21.6-31.8); Chloride 101 mmol/L (96-109); Globulin 3.1 g/dL (1.6-3.3); Glucose 165 mg/dL (70-110); LDL Cholesterol,Calculated 99.5 mg/dL (0.0-131.0); Potassium 4.8 mmol/L (3.5-5.5); Sodium 138 mmol/L (135-145); Total Bilirubin 0.5 mg/dL (0.3-1.2); Total Protein 7.4 g/dL (6.2-8.2)
[2024-08-01 10:52] LABS: NT-Pro-B-Type Natriuretic Pept 76 pg/mL (0-125)
== END | disposition home or self-care (01) ==
LOC: LABWHC1 07:15
PROVIDERS: ATTEND Student in an Organized Health Care Education/Training Program
DX: I48.91 Unspecified atrial fibrillation (principal); I50.9 Heart failure, unspecified; N18.9 Chronic kidney disease, unspecified
CPT/HCPCS: 36415; 80053; 80061; 83880; 84443

== ENCOUNTER → 2025-03-05 | Outpatient (CLI) | payer MEDICARE ==
[2025-03-05 15:03] LABS: HCT 45.5 % (39.6-50.0); HGB 14.9 g/dL (13.0-17.0); MCH 29.5 pg (27.0-32.0); MCHC 32.7 g/dL (32.0-37.0); MCV 90.1 FL (80.0-97.0); Mean Platelet Volume 10.2 FL (9.5-12.2); NRBC Per 100 WBC 0 X 10*3/uL (0.00-0.01); Platelet Count 285 X 10*3/uL (140-440); RBC 5.05 X 10*6/uL (4.40-5.60); RDW 13.2 % (11.5-14.5); WBC 7.72 X 10*3/uL (4.50-10.00)
[2025-03-05 15:47] LABS: ALT 27 U/L (10-49); AST 23 U/L (14-35); Albumin 4.4 g/dL (3.8-4.9); Albumin/Globulin Ratio 1.42 Ratio (1.60-3.17); Alkaline Phosphatase 105 U/L (41-126); Blood Urea Nitrogen 16.2 mg/dL (9.0-27.0); Calcium 9.6 mg/dL (8.7-10.3); Carbon Dioxide 23.9 mmol/L (21.6-31.8); Chloride 101 mmol/L (96-109); Chol/HDL Ratio 5.21 Ratio; Globulin 3.1 g/dL (1.6-3.3); Glucose 249 mg/dL (70-110); LDL Cholesterol,Calculated 141.6 mg/dL (0.0-131.0); Potassium 5.1 mmol/L (3.5-5.5); Sodium 138 mmol/L (135-145); Total Bilirubin 0.5 mg/dL (0.3-1.2); Total Protein 7.5 g/dL (6.2-8.2)
[2025-03-05 15:49] LABS: NT-Pro-B-Type Natriuretic Pept <36 pg/mL (0-125)
== END | disposition home or self-care (01) ==
LOC: LABWHC1 08:03
PROVIDERS: ATTEND Student in an Organized Health Care Education/Training Program
DX: D72.9 Disorder of white blood cells, unspecified (principal); R79.89 Other specified abnormal findings of blood chemistry; E03.9 Hypothyroidism, unspecified; E78.5 Hyperlipidemia, unspecified; E11.9 Type 2 diabetes mellitus without complications; I50.9 Heart failure, unspecified
CPT/HCPCS: 36415; 80053; 80061; 83036; 83880; 84443; 85027